=== PATIENT | female | born 1940 | race Caucasian/White ===

== ENCOUNTER 2017-08-20 16:27 | Emergency (ER) | payer OTHER ==
[~2017-08-20] VITALS: Ht 175.3 cm; Wt 71.3 kg
[2017-08-20 16:42] VITALS: BP 188/82; PULSE 92; RESP 18; TEMP 97.3; O2SAT 99
[2017-08-20] MEDS ORDERED: MECL-62 PO ×2 (17:14)
[2017-08-20] MEDS ORDERED: TYLETAB36 PO ×2 (17:14)
[2017-08-20] MEDS ORDERED: ZOLO100T PO ×2 (17:14)
[2017-08-20] MEDS ORDERED: PROP40TA3 PO ×2 (17:14)
[2017-08-20] MEDS ORDERED: GABA300C5 PO ×2 (17:14)
[2017-08-20] MEDS ORDERED: PROM12.54 PO ×2 (17:14)
[2017-08-20] MEDS ORDERED: AMIT50TA3 PO ×2 (17:14)
[2017-08-20] MEDS ORDERED: SODIUM CHLORID 0.9% 500 ML INJ 500 ML IV ONE (17:30)
[2017-08-20] MEDS ORDERED: MORPHINE SULFATE 8 MG/ML INJ IV PUSH ONE (17:30)
[2017-08-20] MEDS ORDERED: ONDANSETRON HCL 4 MG/2 ML VIAL IV PUSH ONE (17:30)
--- NOTE | 2017-08-20 17:42 | PD ---
HPI Chief Complaint: Pain: Acute or Chronic Time Seen by Provider: 17:14 Travel History International Travel<30 days: No Contact w/Intl Traveler<30days: No Traveled to known affect area: No History of Present Illness HPI the patient is a 76-year-old female who presents to the emergency department for multiple complaints. The patient states she recently moved from [place] to the local area one month ago and does not have a local primary physician. The patient states her last week and a half she has had some hyperparesthesias to the right lower extremity, especially over the thigh and abdomen. She now complains of hyperparesthesias over the anterior aspect the left thigh, notes diminished sensation to lower extremity bilateral, however, does have a history of neuropathy for which she takes Neurontin and amitriptyline. The patient now notes she has had intermittent abdominal pain over the course of the day which is initially located lower aspect of her abdomen, now radiates to the upper aspect of her abdomen. She denies any nausea , vomiting, constipation, or change in bowel habits. 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 The patient states she had a referral to see a neurologist in [place], however, moved from [place] after the of her , prior to seeing the neurologist. Symptoms are moderate, there are no alleviating or exacerbating factors. PFSH Past Medical History Depression: Yes Diminished Hearing: No Tetanus Vaccination: Unknown ?: Not Past Surgical History Appendectomy: Yes Eye Surgery: Yes (BILAT. CATARACT REMOVAL) Hysterectomy: Yes Social History Alcohol Use: No Tobacco Use: No Substance Use: No Allergies-Medications (Allergen,Severity, Reaction): Coded Allergies: No Known Allergies (Verified Allergy, Unknown, 08/20/17) Reported Meds & Prescriptions Reported Meds & Active Scripts Active Reported Amitriptyline (Amitriptyline HCl) 50 Mg Tab 50 Mg PO HS Propranolol (Propranolol HCl) 40 Mg Tab 40 Mg PO Q12HR Promethazine (Promethazine HCl) 12.5 Mg Tab 12.5 Mg PO QDAY PRN Gabapentin 300 Mg Cap 300 Mg PO TID Meclizine (Meclizine HCl) 25 Mg Tab 25 Mg PO DIRECTED PRN Tylenol-Codeine #4 (Acetaminophen-Codeine) 300-60 mg Tab 1 Tab PO Q6H PRN Zoloft (Sertraline HCl) 100 Mg Tab 100 Mg PO DAILY Review of Systems Except as stated in HPI: all other systems reviewed are Neg General / Constitutional: No: Fever HENT: No: Headaches, Lightheadedness Cardiovascular: No: Chest Pain or Discomfort Respiratory: No: Shortness of Breath Gastrointestinal: No: Nausea, Vomiting, Diarrhea Genitourinary: No: Dysuria Musculoskeletal: Positive: Weakness (occasionally her legs want to give out) Neurologic: Positive: Weakness (occasionally her legs want to give out), Paresthesia (hyperparesthesias), Sensory Disturbance, No: Change in Mentation Physical Exam Narrative GENERAL: Awake, alert, pleasant 76-year-old female who appears her stated age and is in no acute respiratory distress. SKIN: Focused skin assessment warm/dry. HEAD: Atraumatic. Normocephalic. EYES: Pupils equal and round. No scleral icterus. No injection or drainage. ENT: No nasal bleeding or discharge. Mucous membranes pink and moist. NECK: Trachea midline. No JVD. CARDIOVASCULAR: Regular rate and rhythm. No murmur appreciated. RESPIRATORY: No accessory muscle use. Clear to auscultation. Breath sounds equal bilaterally. GASTROINTESTINAL: Abdomen soft, non-tender, nondistended. No rebound tenderness , guarding, or rigidity. Abdomen is soft on exam. MUSCULOSKELETAL: No obvious deformities. No clubbing. No cyanosis. No edema. Patient is able flex the hips and knees bilaterally. Positive dorsalis pedal pulses. NEUROLOGICAL: Awake and alert. No obvious cranial nerve deficits. Motor grossly within normal limits. Normal speech. Hypersensitive to soft touch over the anterior aspect of the right thigh, minimal hypersensitive teeth to soft touch of the intra-aspect the left thigh. Minimal hyperesthesias of the lower abdomen bilaterally. PSYCHIATRIC: Appropriate mood and affect; insight and judgment normal. Data Data Last Documented VS Vital Signs Date Time Temp Pulse Resp B/P (MAP) Pulse Ox O2 Delivery O2 Flow Rate FiO2 08/20/17 18:44 84 16 187/81 (116) 94 Room Air 08/20/17 16:42 97.3 Orders Orders Complete Blood Count With Diff (08/20/17 17:30) Comprehensive Metabolic Panel (08/20/17 17:30) C-Reactive Protein (Crp) (08/20/17 17:30) Westergren Sedimentation Rate (08/20/17 17:30) Lipase (08/20/17 17:30) Morphine Inj (Morphine Inj) (08/20/17 17:30) Ondansetron Inj (Zofran Inj) (08/20/17 17:30) Sodium Chlorid 0.9% 500 Ml Inj (Ns 500 M (08/20/17 17:30) Hydromorphone Pf Inj (Dilaudid Pf Inj) (08/20/17 19:00) Ketorolac Inj (Toradol Inj) (08/20/17 19:00) Labs Laboratory Tests Test 08/20/17 17:40 White Blood Count 9.4 TH/MM3 Red Blood Count 4.41 MIL/MM3 Hemoglobin 14.1 GM/DL Hematocrit 42.3 % Mean Corpuscular Volume 95.9 FL Mean Corpuscular Hemoglobin 32.0 PG Mean Corpuscular Hemoglobin Concent 33.4 % Red Cell Distribution Width 12.5 % Platelet Count 278 TH/MM3 Mean Platelet Volume 8.1 FL Neutrophils (%) (Auto) 83.2 % Lymphocytes (%) (Auto) 7.5 % Monocytes (%) (Auto) 6.3 % Eosinophils (%) (Auto) 2.7 % Basophils (%) (Auto) 0.3 % Neutrophils # (Auto) 7.8 TH/MM3 Lymphocytes # (Auto) 0.7 TH/MM3 Monocytes # (Auto) 0.6 TH/MM3 Eosinophils # (Auto) 0.3 TH/MM3 Basophils # (Auto) 0.0 TH/MM3 CBC Comment DIFF FINAL Differential Comment Erythrocyte Sedimentation Rate 10 mm/hr Blood Urea Nitrogen 12 MG/DL Creatinine 0.68 MG/DL Random Glucose 138 MG/DL Total Protein 7.0 GM/DL Albumin 3.5 GM/DL Calcium Level 9.5 MG/DL Alkaline Phosphatase 77 U/L Aspartate Amino Transf (AST/SGOT) 18 U/L Alanine Aminotransferase (ALT/SGPT) 16 U/L Total Bilirubin 0.7 MG/DL Sodium Level 136 MEQ/L Potassium Level 3.7 MEQ/L Chloride Level 101 MEQ/L Carbon Dioxide Level 27.2 MEQ/L Anion Gap 8 MEQ/L Estimat Glomerular Filtration Rate 84 ML/MIN Lipase 52 U/L MDM Medical Decision Making Medical Screen Exam Complete: Yes Emergency Medical Condition: Yes Medical Record Reviewed: Yes Interpretation(s) Laboratory Tests Test 08/20/17 17:40 White Blood Count 9.4 TH/MM3 Red Blood Count 4.41 MIL/MM3 Hemoglobin 14.1 GM/DL Hematocrit 42.3 % Mean Corpuscular Volume 95.9 FL Mean Corpuscular Hemoglobin 32.0 PG Mean Corpuscular Hemoglobin Concent 33.4 % Red Cell Distribution Width 12.5 % Platelet Count 278 TH/MM3 Mean Platelet Volume 8.1 FL Neutrophils (%) (Auto) 83.2 % Lymphocytes (%) (Auto) 7.5 % Monocytes (%) (Auto) 6.3 % Eosinophils (%) (Auto) 2.7 % Basophils (%) (Auto) 0.3 % Neutrophils # (Auto) 7.8 TH/MM3 Lymphocytes # (Auto) 0.7 TH/MM3 Monocytes # (Auto) 0.6 TH/MM3 Eosinophils # (Auto) 0.3 TH/MM3 Basophils # (Auto) 0.0 TH/MM3 CBC Comment DIFF FINAL Differential Comment Erythrocyte Sedimentation Rate 10 mm/hr Blood Urea Nitrogen 12 MG/DL Creatinine 0.68 MG/DL Random Glucose 138 MG/DL Total Protein 7.0 GM/DL Albumin 3.5 GM/DL Calcium Level 9.5 MG/DL Alkaline Phosphatase 77 U/L Aspartate Amino Transf (AST/SGOT) 18 U/L Alanine Aminotransferase (ALT/SGPT) 16 U/L Total Bilirubin 0.7 MG/DL Sodium Level 136 MEQ/L Potassium Level 3.7 MEQ/L Chloride Level 101 MEQ/L Carbon Dioxide Level 27.2 MEQ/L Anion Gap 8 MEQ/L Estimat Glomerular Filtration Rate 84 ML/MIN Lipase 52 U/L Differential Diagnosis Differential diagnosis includes neuropathy, spinal cord disorder, peripheral neuropathy, medication side effect, electrolyte abnormality. Narrative Course IV was established, labs are drawn and sent, and the patient was placed on cardiac telemetry monitoring and continuous pulse oximetry monitoring. The patient was administer morphine, Zofran, and IV fluids. The patient's white count is unremarkable. Calcium and potassium are normal. Sedimentation rate is normal at 10. I discussed the patient with the on-call neurologist, Dr. Corona, who states the patient is stable for outpatient follow-up. I will provide the patient information regards to following up with neurology. I will write Fords for breakthrough pain. Diagnosis Primary Impression: Hyperesthesia Referrals: Jozef Corona MD call for appointment Patient Instructions: General Instructions Additional Instructions: Follow-up with neurology. Medications as directed. Return if symptoms worsen or progress. Please provide the patient a copy of her lab results at discharge. Do not take Fords and Tylenol No. 4 together at the same time. Med/Other Pt SpecificInfo: Prescription(s) given Scripts Hydrocodone-Acetaminophen (Fords) 5-325 mg Tab 1 TAB PO Q6H Y for PAIN, #15 TAB 0 Refills Prov: Brandon Hu MD 08/20/17 Disposition: 01 DISCHARGE HOME Condition: Stable Brandon Hu MD Aug 20, 2017 17:42
[2017-08-20 17:48] VITALS: BP 180/74; PULSE 89; RESP 16; O2SAT 97
[2017-08-20 17:59] LABS: AUTOMATED NEUTROPHIL # 7.8 TH/MM3 (1.8-7.7); BASOPHIL % 0.3 % (0.0-2.0); EOSINOPHIL # 0.3 TH/MM3 (0-0.4); EOSINOPHIL % 2.7 % (0.0-4.0); HEMATOCRIT 42.3 % (35.0-46.0); HEMO FLAGS DIFF FINAL; LYMPH % 7.5 % (9.0-44.0); LYMPHOCYTE # 0.7 TH/MM3 (1.0-4.8); MEAN CELL VOLUME 95.9 FL (80.0-100.0); MEAN CORPUSCULAR HGB CONC 33.4 % (32.0-36.0); MONO % 6.3 % (0.0-8.0); NEUT % 83.2 % (16.0-70.0); PLATELET COUNT 278 TH/MM3 (150-450); RED BLOOD COUNT 4.41 MIL/MM3 (4.00-5.30); RED CELL DISTRIBUTION WIDTH 12.5 % (11.6-17.2); WHITE BLOOD COUNT 9.4 TH/MM3 (4.0-11.0)
[2017-08-20 18:28] LABS: CHLORIDE 101 MEQ/L (98-107); POTASSIUM 3.7 MEQ/L (3.5-5.1); SODIUM (NA) 136 MEQ/L (136-145)
[2017-08-20 18:32] LABS: ANION GAP 8 MEQ/L (5-15); BICARBONATE 27.2 MEQ/L (21.0-32.0); BLOOD UREA NITROGEN 12 MG/DL (7-18)
[2017-08-20 18:35] LABS: ALT (GPT) 16 U/L (10-53); AST (GOT) 18 U/L (15-37); GLOMERULAR FILTRATION RATE 84 ML/MIN (>89)
[2017-08-20 18:36] LABS: TOTAL BILIRUBIN ADULT 0.7 MG/DL (0.2-1.0)
[2017-08-20 18:38] LABS: ALKALINE PHOSPHATASE 77 U/L (45-117)
[2017-08-20 18:44] VITALS: BP 187/81; PULSE 84; RESP 16; O2SAT 94
[2017-08-20] MEDS ORDERED: KETOROLAC TROMETHAMINE 30 MG/ML (IVP) VIAL IV PUSH ONE (19:00)
[2017-08-20] MEDS ORDERED: HYDROmorphone HCL PF 0.5 MG/0.5 ML SYRINGE IV PUSH ONE (19:00)
[2017-08-20] MEDS ORDERED: NORC5TAB PO (19:04)
[2017-08-20 19:47] VITALS: BP 180/80; PULSE 86; RESP 16; O2SAT 96
== END 2017-08-20 20:04 | disposition home or self-care (01) ==
LOC: PHED 16:27 → EDBD 16:27 → PHED 20:04
DX: R20.3 Hyperesthesia (principal); R10.9 Unspecified abdominal pain; Z86.69 Personal history of other diseases of the nervous system and sense organs; Z86.59 Personal history of other mental and behavioral disorders
CPT/HCPCS: 80053; 83690; 85025; 85652; 86140; 96361; 96374; 96375; 99284; J1170; J1885; J2270; J2405; J7040

== ENCOUNTER 2017-08-22 16:42 | Inpatient (IN) | payer OTHER, MEDICARE ==
[~2017-08-22] VITALS: Ht 175.3 cm; Wt 71.1 kg
[~2017-08-22 16:42] MED LIST: AMIT50TA3 PO; GABA300C5 PO; MECL-62 PO; NORC5TAB PO; PROM12.54 PO; PROP40TA3 PO; TYLETAB36 PO; ZOLO100T PO
[2017-08-22 16:49] VITALS: BP 131/71; PULSE 97; RESP 16; TEMP 97.2; O2SAT 94
--- NOTE | 2017-08-22 17:27 | PD ---
HPI Chief Complaint: GI Complaint Time Seen by Provider: 17:13 Travel History International Travel<30 days: No Contact w/Intl Traveler<30days: No Traveled to known affect area: No History of Present Illness HPI 76-year-old female complains of abdominal pain with nausea vomiting. Patient states that the symptoms started 3 days ago and got progressively worse since then. Patient he was seen in emergency room 2 days ago and had blood test done which was normal. Patient states that the abdominal pain was localized to lower abdomen at that time and moving up to the upper abdomen now. Patient states the pain in cramping pain and sharp pain without radiation. Patient states that she has been vomiting up bile material. Patient denies any fever chills. Patient denies any headache. Patient denies any chest pain or shortness of breath. Patient denies any dysuria or frequency. Patient denies any fever chills. Patient status post hysterectomy and appendectomy in the past. Patient also has history of neuropathy. PFSH Past Medical History Depression: Yes Diminished Hearing: No Medical other: No (Neuropathy of leg, due to spinal issues) Tetanus Vaccination: < 5 Years Influenza Vaccination: Yes Past Surgical History Appendectomy: Yes Eye Surgery: Yes (BILAT. CATARACT REMOVAL) Hysterectomy: Yes Social History Alcohol Use: No Tobacco Use: No Substance Use: No Allergies-Medications (Allergen,Severity, Reaction): Coded Allergies: No Known Allergies (Verified Allergy, Unknown, 08/20/17) Reported Meds & Prescriptions Reported Meds & Active Scripts Active Meridian (Hydrocodone-Acetaminophen) 5-325 mg Tab 1 Tab PO Q6H PRN Reported Amitriptyline (Amitriptyline HCl) 50 Mg Tab 50 Mg PO HS Propranolol (Propranolol HCl) 40 Mg Tab 40 Mg PO Q12HR Promethazine (Promethazine HCl) 12.5 Mg Tab 12.5 Mg PO QDAY PRN Gabapentin 300 Mg Cap 300 Mg PO TID Meclizine (Meclizine HCl) 25 Mg Tab 25 Mg PO DIRECTED PRN Tylenol-Codeine #4 (Acetaminophen-Codeine) 300-60 mg Tab 1 Tab PO Q6H PRN Zoloft (Sertraline HCl) 100 Mg Tab 100 Mg PO DAILY Review of Systems General / Constitutional: No: Fever Eyes: No: Visual changes HENT: No: Headaches Cardiovascular: No: Chest Pain or Discomfort Respiratory: No: Shortness of Breath Gastrointestinal: Positive: Nausea, Vomiting, Abdominal Pain Genitourinary: No: Dysuria Musculoskeletal: No: Pain Skin: No Rash Neurologic: No: Weakness Psychiatric: No: Depression Endocrine: No: Polydipsia Hematologic/Lymphatic: No: Easy Bruising Physical Exam Narrative GENERAL: Well-nourished, well-developed patient. SKIN: Focused skin assessment warm/dry. HEAD: Normocephalic. EYES: No scleral icterus. No injection or drainage. NECK: Supple, trachea midline. No JVD or lymphadenopathy. CARDIOVASCULAR: Regular rate and rhythm without murmurs, gallops, or rubs. RESPIRATORY: Breath sounds equal bilaterally. No accessory muscle use. GASTROINTESTINAL: Abdomen soft, nondistended. Patient has moderate tenderness on palpation epigastric and right upper quadrant of the abdomen. No rebound tenderness. No mass. MUSCULOSKELETAL: No cyanosis, or edema. BACK: Nontender without obvious deformity. No CVA tenderness. Neurologic exam normal. Data Data Last Documented VS Vital Signs Date Time Temp Pulse Resp B/P (MAP) Pulse Ox O2 Delivery O2 Flow Rate FiO2 08/22/17 18:11 98.6 89 17 175/80 (111) 97 Room Air Orders Orders Complete Blood Count With Diff (08/22/17 17:19) Comprehensive Metabolic Panel (08/22/17 17:19) Lipase (08/22/17 17:19) Prothrombin Time / Inr (Pt) (08/22/17 17:19) Act Partial Throm Time (Ptt) (08/22/17 17:19) Urinalysis - C+S If Indicated (08/22/17 17:19) Ct Abd/Pel W Iv Contrast(Rout) (08/22/17 17:19) Iv Access Insert/Monitor (08/22/17 17:19) Ecg Monitoring (08/22/17 17:19) Oximetry (08/22/17 17:19) Ondansetron Inj (Zofran Inj) (08/22/17 17:30) Sodium Chlor 0.9% 1000 Ml Inj (Ns 1000 M (08/22/17 17:19) Sodium Chloride 0.9% Flush (Ns Flush) (08/22/17 17:30) Electrocardiogram (08/22/17 17:19) Famotidine Inj (Pepcid Inj) (08/22/17 17:30) Morphine Inj (Morphine Inj) (08/22/17 17:45) Iohexol 350 Inj (Omnipaque 350 Inj) (08/22/17 17:49) Diphenhydramine Inj (Benadryl Inj) (08/22/17 18:15) Metoclopramide Inj (Reglan Inj) (08/22/17 18:15) Labs Laboratory Tests Test 08/22/17 17:32 White Blood Count 8.5 TH/MM3 Red Blood Count 4.57 MIL/MM3 Hemoglobin 14.9 GM/DL Hematocrit 43.7 % Mean Corpuscular Volume 95.5 FL Mean Corpuscular Hemoglobin 32.6 PG Mean Corpuscular Hemoglobin Concent 34.1 % Red Cell Distribution Width 12.9 % Platelet Count 320 TH/MM3 Mean Platelet Volume 8.0 FL Neutrophils (%) (Auto) 74.3 % Lymphocytes (%) (Auto) 9.1 % Monocytes (%) (Auto) 15.1 % Eosinophils (%) (Auto) 1.1 % Basophils (%) (Auto) 0.4 % Neutrophils # (Auto) 6.3 TH/MM3 Lymphocytes # (Auto) 0.8 TH/MM3 Monocytes # (Auto) 1.3 TH/MM3 Eosinophils # (Auto) 0.1 TH/MM3 Basophils # (Auto) 0.0 TH/MM3 CBC Comment DIFF FINAL Differential Comment Prothrombin Time 11.2 SEC Prothromb Time International Ratio 1.0 RATIO Activated Partial Thromboplast Time 24.1 SEC Random Glucose 145 MG/DL Albumin 3.3 GM/DL Calcium Level 9.4 MG/DL Sodium Level 135 MEQ/L Potassium Level 3.9 MEQ/L Chloride Level 98 MEQ/L Carbon Dioxide Level 30.7 MEQ/L Anion Gap 6 MEQ/L Lipase 49 U/L [facility] Medical Decision Making Medical Screen Exam Complete: Yes Emergency Medical Condition: Yes Interpretation(s) 1815 p.m. CBC within normal limit. 1852 PM. Last Impressions Abdomen/Pelvis CT 08/22/179 Signed Impressions: Service Date/Time: Tuesday, August 22, 2017 17:45 - CONCLUSION: 1. There is a distal small bowel obstruction secondary to a low Spigellian hernia on the right. 2. Small volume ascites. 3. Cholelithiasis. 4. Moderate-sized hiatal hernia. 5. 6. 5 mm right lower lobe pulmonary nodule. The findings described above include a newly detected solid pulmonary nodule of 4-6 mm average diameter. Guidelines from the Fleischner Society for the follow-up and management of newly detected indeterminate pulmonary nodules in persons >34 years old depend on nodule size (average of length and width) and underlying risk factors (including smoking and other risk factors). Please consider the following recommendations after clinical assessment of risk factors. For 4-6 mm nodules: 7. In low risk patients, follow-up CT at 12 months; if unchanged, no further follow-up needed. In high risk patients, initial follow-up CT at 6-12 months, then 18-24 months if no change. Bridger Coronado Jr., MD 1901 p.m. CBC within normal limit. Sodium 135. BUN 33. Creatinine 0.76. Differential Diagnosis Differential diagnosis including gastritis, PUD, pancreatitis, cholecystitis, colitis, UTI, pyelonephritis, nephrolithiasis, bowel obstruction. Narrative Course 76-year-old female with epigastric right upper quadrant abdominal pain, nausea vomiting. Normal saline solution 1 25 cc an hour. Morphine 2 mg IV. Zofran 4 mg IV. Pepcid 20 mg IV. Reglan 10 mg IV. Benadryl 25 g IV. Ativan 1 mg IV. NG tube inserted and connected to low wall suction. Normal saline solution 1 L IV bolus. Spoke with general surgeon on-call Dr. Brendan Torre. Dr. Brendan Torre advised medical admission and surgical consultation. Diagnosis Primary Impression: Incarcerated hernia of abdominal cavity Additional Impressions: Small bowel obstruction Dehydration Admitting Information Admitting Physician Requests: Admit Alpesh Paulino MD Aug 22, 2017 17:27
[2017-08-22] MEDS ORDERED: SODIUM CHLORIDE 0.9% FLUSH 10 ML FLUSH IV FLUSH PRN ×2 (17:30→20:00)
[2017-08-22] MEDS ORDERED: FAMOTIDINE 20 MG/2 ML VIAL IV PUSH ONE (17:30)
[2017-08-22] MEDS ORDERED: ONDANSETRON HCL 4 MG/2 ML VIAL IVP ONE (17:30)
[2017-08-22] MEDS ORDERED: MORPHINE SULFATE 4 MG/ML INJ IV PUSH ONE (17:30)
[2017-08-22 17:42] LABS: AUTOMATED NEUTROPHIL # 6.3 TH/MM3 (1.8-7.7); BASOPHIL % 0.4 % (0.0-2.0); EOSINOPHIL # 0.1 TH/MM3 (0-0.4); EOSINOPHIL % 1.1 % (0.0-4.0); HEMATOCRIT 43.7 % (35.0-46.0); HEMO FLAGS DIFF FINAL; LYMPH % 9.1 % (9.0-44.0); LYMPHOCYTE # 0.8 TH/MM3 (1.0-4.8); MEAN CELL VOLUME 95.5 FL (80.0-100.0); MEAN CORPUSCULAR HEMOGLOBIN 32.6 PG (27.0-34.0); MEAN CORPUSCULAR HGB CONC 34.1 % (32.0-36.0); MONO % 15.1 % (0.0-8.0); NEUT % 74.3 % (16.0-70.0); PLATELET COUNT 320 TH/MM3 (150-450); RED BLOOD COUNT 4.57 MIL/MM3 (4.00-5.30); RED CELL DISTRIBUTION WIDTH 12.9 % (11.6-17.2); WHITE BLOOD COUNT 8.5 TH/MM3 (4.0-11.0)
[2017-08-22] MEDS ORDERED: MORPHINE SULFATE 2 MG/ML INJ IV PUSH ONE (17:45)
[2017-08-22] MEDS ORDERED: IOHEXOL 350 MG/ML 10 ML VIAL (for RAD DIAG) IVCONTRAST ONE (17:49)
[2017-08-22] MEDS: SODIUM CHLOR 0.9% 1000 ML INJ 1,000 ML IV SCH ×2 (18:02→21:31)
[2017-08-22 18:10] LABS: CHLORIDE 98 MEQ/L (98-107); POTASSIUM 3.9 MEQ/L (3.5-5.1); SODIUM (NA) 135 MEQ/L (136-145)
[2017-08-22 18:11] VITALS: BP 175/80; PULSE 89; RESP 17; TEMP 98.6; O2SAT 97
[2017-08-22 18:14] LABS: ANION GAP 6 MEQ/L (5-15); BICARBONATE 30.7 MEQ/L (21.0-32.0)
[2017-08-22 18:15] LABS: APTT (PATIENT) 24.1 SEC (24.3-30.1); PROTHROMBIN TIME - PATIENT 11.2 SEC (9.8-11.6)
[2017-08-22] MEDS ORDERED: diphenhydrAMINE HCL 50 MG/ML VIAL IV PUSH ONE (18:15)
[2017-08-22] MEDS ORDERED: METOCLOPRAMIDE HCL 10 MG/2 ML VIAL IV PUSH ONE (18:15)
--- NOTE | 2017-08-22 18:20 | RADRPT ---
EXAM DATE/TIME: 08/22/2017 17:45 [facility] COMPARISON: No previous studies available for comparison. INDICATIONS : Upper abdominal pain with nausea and vomiting. IV CONTRAST: 100 cc Omnipaque 350 (iohexol) IV ORAL CONTRAST: No oral contrast ingested. RADIATION DOSE: 11.03 CTDIvol (mGy) MEDICAL HISTORY : None SURGICAL HISTORY : Hysterectomy. Appendectomy.Hip replacement. ENCOUNTER: Initial ACUITY: 3 days PAIN SCALE: 5/10 LOCATION: upper quadrant abdomen TECHNIQUE: Volumetric scanning of the abdomen and pelvis was performed. Using automated exposure control and ad justment of the mA and/or kV according to patient size, radiation dose was kept as low as reasonably achievable to obtain optimal diagnostic quality images. DICOM format image data is available electro nically for review and comparison. FINDINGS: LOWER LUNGS: A moderate-sized hiatal hernia which is fluid-filled. Lung bases show linear atelectasis versus scarr ing within the lingula. Mild bronchiectasis within the right middle lobe. 5 mm pulmonary nodule withi n the right lung base. LIVER: Homogeneous density without lesion. There is no dilation of the biliary tree. Small gallstones obser jagdeep within an otherwise normal-appearing gallbladder. SPLEEN: Normal size without lesion. PANCREAS: Within normal limits. KIDNEYS: Normal in size and shape. There is no mass, stone or hydronephrosis. ADRENAL GLANDS: Within normal limits. VASCULAR: There is no aortic aneurysm. BOWEL/MESENTERY: There is a low Spigellian hernia on the right containing a loop of small bowel. There is also fluid w ithin the hernia. Dilated small bowel proximal to the hernia with decompressed small bowel distal to the hernia. There is mild stranding of the mesenteric fat within the right lower quadrant. I'm not ab le to clearly identify the appendix. The colon is normal in caliber. No free air. Stomach is distende d with fluid. ABDOMINAL WALL: Within normal limits. RETROPERITONEUM: There is no lymphadenopathy. BLADDER: No wall thickening or mass. REPRODUCTIVE: Within normal limits. INGUINAL: There is no lymphadenopathy or hernia. MUSCULOSKELETAL: Within normal limits for patient age. CONCLUSION: 1. There is a distal small bowel obstruction secondary to a low Spigellian hernia on the right. 2. Small volume ascites. 3. Cholelithiasis. 4. Moderate-sized hiatal hernia. 5. 6. 5 mm right lower lobe pulmonary nodule. The findings described above include a newly detected maksim d pulmonary nodule of 4-6 mm average diameter. Guidelines from the Fleischner Society for the follow- up and management of newly detected indeterminate pulmonary nodules in persons >34 years old depend o n nodule size (average of length and width) and underlying risk factors (including smoking and other risk factors). Please consider the following recommendations after clinical assessment of risk facto rs. For 4-6 mm nodules: 7. In low risk patients, follow-up CT at 12 months; if unchanged, no further follow-up needed. In hi gh risk patients, initial follow-up CT at 6-12 months, then 18-24 months if no change. Bridger Coronado Jr., MD on August 22, 2017 at 18:11 Board Certified Radiologist. This report was verified electronically.
[2017-08-22 19:03] LABS: ALKALINE PHOSPHATASE 70 U/L (45-117); ALT (GPT) 28 U/L (10-53); AST (GOT) 25 U/L (15-37); BLOOD UREA NITROGEN 33 MG/DL (7-18); GLOMERULAR FILTRATION RATE 74 ML/MIN (>89)
[2017-08-22] MEDS ORDERED: SODIUM CHLOR 0.9% 1000 ML INJ 1,000 ML IV ONE (19:15)
[2017-08-22] MEDS ORDERED: LORazepam 2 MG/ML VIAL IV PUSH ONE (19:15)
[2017-08-22] MEDS ORDERED: BUPIVACAINE/EPINEPHRINE 0.25% PF 30 ML VIAL ONE ×2 (19:54)
[2017-08-22] MEDS ORDERED: LIDOCAINE 1%/EPINEPHrine 1:100,000 SOLN 20 ML VIAL ONE (19:54)
[2017-08-22] MEDS ORDERED: MORPHINE SULFATE 2 MG/ML INJ IV PUSH PRN (20:00)
[2017-08-22] MEDS ORDERED: NALOXONE HCL 0.4 MG/ML AMP IV PUSH PRN (20:00)
[2017-08-22 20:16] VITALS: BP 148/68; TEMP 98.1
[2017-08-22] MEDS ORDERED: ceFAZolin INJ 1,000 MG VIAL ONE (20:23)
[2017-08-22] MEDS: SODIUM CHLORIDE 0.9% FLUSH 10 ML FLUSH IV FLUSH SCH (21:00)
--- NOTE | 2017-08-22 21:12 | MB ---
cc: TOO PALAFOX M.D. DATE OF CONSULTATION 08/22/2017 REASON FOR CONSULTATION Small bowel obstruction secondary to right lower quadrant hernia. HISTORY OF PRESENT ILLNESS Ms. Peres is a pleasant 76-year-old female who apparently had a 3-day history of nausea, vomiting, abdominal pain. She is seen in the emergency department approximately 2 days ago at [place] and blood work and the physical exam was felt to be normal and she was discharged home. The patient returned tonight with progressive symptoms. She was seen and evaluated by Dr. Alpesh Paulino. Dr. Paulino ordered a CT scan of the abdomen and pelvis that showed an incarcerated right lower quadrant hernia. Surgical consultation was requested. The patient overall is a very poor historian, has some memory loss but I was able to get most of the history from her. She reports nausea, vomiting, abdominal pain for the last 3 days. She reports bowel movement yesterday. Pain is mainly in the right lower quadrant area. She denies any known history of hernia. She reports previous abdominal surgery is a . PAST MEDICAL HISTORY Early dementia, depression, breast cancer. PAST SURGICAL HISTORY She has had bilateral mastectomies with looks like implant reconstruction. She has had cataract surgery. She has had a . MEDICATIONS Her medication list is well-documented in the chart. Please see the EMR. ALLERGIES SHE HAS NO KNOWN DRUG ALLERGIES. SOCIAL HISTORY She does not smoke or drink. She lives here locally with her daughter. REVIEW OF SYSTEMS Please see HPI. PHYSICAL EXAMINATION VITAL SIGNS: Temperature is 98, pulse is 80, blood pressure 140/60, respiratory rate 20. GENERAL: In general, this is a pleasant elderly female who is lying in the bed. No apparent distress. HEENT: Pupils equal, round, reactive to light. Sclera are white. Oropharynx is clear and moist. NECK: Neck is supple. No masses. LUNGS: Clear to auscultation bilaterally. HEART: S1-S2, no murmur. ABDOMEN: Soft, mildly distended, nontender. She does have a palpable mass over in the right groin over by the iliac spine. I do palpate some bowel in there but it is soft, does not appear to be strangulated. Bowel sounds are active. EXTREMITIES: Free range of motion x4. NEUROLOGICALLY: Alert and oriented x3. IMAGING STUDIES CT scan of the abdomen and pelvis does demonstrate incarcerated small bowel and a right lower quadrant hernia. It is unclear if this is a groin hernia, a possible incisional hernia from her previous scar or possible spigelian hernia but there is definitely a small bowel within it. 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 The patient also had some gallstones and a hiatal hernia. IMPRESSION Incarcerated right lower quadrant hernia. PLAN The patient will be taken to the operating room immediately for reduction of the small bowel and inspection of the small bowel. If the small bowel is considered compromised she may require a bowel resection. This was discussed with her daughter by phone who was agreeable and is coming back to the hospital to be with her mother. Operating room staff was notified and they will bring the patient up immediately. MD ROSS Nichols/VALERIE /8:44 PM 8:55 PM
[2017-08-22] MEDS ORDERED: CHLORHEXIDINE GLUCONATE 2 % 1 PACK (2 CLOTHS) TOPICAL PRN (21:30)
[2017-08-22] MEDS ORDERED: POVIDONE IODINE 5% (ANTISEPSIS KIT) 4 APPLICATIONS EACH NARE PRN (21:30)
[2017-08-22] MEDS ORDERED: LACTATED RINGER'S 1000 ML IV PRN (21:30)
[2017-08-22] MEDS ORDERED: INSULIN HUMAN REGULAR 1,000 UNITS/10 ML VIAL SQ PRN (21:30)
[2017-08-22] MEDS ORDERED: SODIUM CHLORID 0.9% 500 ML IV PRN (21:30)
[2017-08-22] MEDS ORDERED: METOPROLOL TARTRATE 25 MG TAB PO PRN (21:30)
[2017-08-22 23:00] VITALS: BP 169/77; PULSE 83; RESP 23; TEMP 97.8; O2SAT 99
--- NOTE | 2017-08-23 00:13 | MP ---
cc: TOO PALAFOX M.D. DATE OF SURGERY: 08/22/2017 PREOPERATIVE DIAGNOSIS: Incarcerated right groin hernia. Incarcerated small bowel (viable right inguinal hernia). POSTOPERATIVE DIAGNOSIS Incarcerated right groin hernia. Incarcerated small bowel (viable right inguinal hernia). PROCEDURE PERFORMED Reduction, repair incarcerated right inguinal hernia. (Primary repair). SURGEON: Too Palafox MD. ANESTHESIA General endotracheal COMPLICATIONS None. INDICATIONS FOR PROCEDURE: Mr. Peres is a very pleasant 76 year-old female who presented to the emergency department with small bowel obstruction secondary to right lower quadrant hernia, seen on CT scan. She was advised to go to the operating room immediately. Risks and benefits of repair and reduction of the hernia was discussed with her and her daughter and they were agreeable. DETAILS The patient identified, brought to the operating room, placed supine on the operating room table. After adequate general anesthesia was achieved the abdomen and groin was prepped and draped in standard surgical fashion. 0.25% Marcaine was injected in the skin and subcutaneous tissue in the right groin. Transverse incision was made in the right groin. Dissection was carried down through the subcutaneous tissue down to the level of the external oblique. External oblique was opened along the course of its fibers. The patient was found to have a lateral bulge with a small sac which was opened. This was not the incarcerated hernia but rather a secondary hernia in the lateral compartment. Using direct finger palpation we were able to feel the true hernia which was more inferior and medial than expected. The abdominal wall fascia was then opened down to the level of the defect. A finger was placed in the defect and the bowel was held away as we opened it. Once we opened it, the bowel was released. The bowel was pink. There was a minor amount of bruising where it went through the neck of the hernia. The bowel was brought out and inspected over several minutes found to be of good color and actually peristalsing. The bruising was minimal. There was no ischemic changes. The bowel was then reduced back in the abdominal cavity. Attention was now directed to repair of the defect. The round ligament was ligated. The external oblique and transversalis fascia were then sewn together directly over the defect using a 2-0 Prolene suture with generous bites on both sides. As we closed we palpated the abdominal wall from the peritoneal side and the defect was completely obliterated with our primary suture repair. This was done all the way up until all layers of fascia had been brought back together under no tension. With this the defect was completely gone, the abdominal wall was intact. The wound was copiously irrigated with normal saline solution. The wound was injected with additional local anesthetic. Luis Alfredo fascia was then closed with a 3-0 Vicryl and skin was closed with 4-0 Vicryl. The patient tolerated the procedure well was awakened, and brought to recovery in stable condition. MD ROSS Nichols/LAKSMHI /9:46 PM /12:06 AM
[2017-08-23 04:00] VITALS: PULSE 91; RESP 20; O2SAT 97
--- NOTE | 2017-08-23 05:19 | EKG ---
Date Performed: 08/22/2017 Time Performed: 17:32:54 PTAGE: 76 years EKG: Sinus rhythm INCOMPLETE RIGHT BUNDLE BRANCH BLOCK BORDERLINE ECG NO PREVIOUS TRACING DOCTOR: Baldemar Campa Interpretating Date/Time 08/23/2017 05:17:52
[2017-08-23 06:41] LABS: CHLORIDE 103 MEQ/L (98-107); POTASSIUM 3.5 MEQ/L (3.5-5.1); SODIUM (NA) 140 MEQ/L (136-145)
[2017-08-23 06:48] LABS: AUTOMATED NEUTROPHIL # 5.5 TH/MM3 (1.8-7.7); BASOPHIL % 0.4 % (0.0-2.0); EOSINOPHIL # 0.4 TH/MM3 (0-0.4); EOSINOPHIL % 4.5 % (0.0-4.0); HEMATOCRIT 37.7 % (35.0-46.0); HEMO FLAGS DIFF FINAL; LYMPH % 15.2 % (9.0-44.0); LYMPHOCYTE # 1.3 TH/MM3 (1.0-4.8); MEAN CELL VOLUME 97.7 FL (80.0-100.0); MEAN CORPUSCULAR HEMOGLOBIN 33.8 PG (27.0-34.0); MEAN CORPUSCULAR HGB CONC 34.6 % (32.0-36.0); MONO % 13.6 % (0.0-8.0); NEUT % 66.3 % (16.0-70.0); RED BLOOD COUNT 3.86 MIL/MM3 (4.00-5.30); RED CELL DISTRIBUTION WIDTH 13.2 % (11.6-17.2); WHITE BLOOD COUNT 8.3 TH/MM3 (4.0-11.0)
[2017-08-23 06:57] LABS: PLATELET COUNT 222 TH/MM3 (150-450)
[2017-08-23 07:08] LABS: ALKALINE PHOSPHATASE 56 U/L (45-117); ALT (GPT) 21 U/L (10-53); ANION GAP 7 MEQ/L (5-15); AST (GOT) 16 U/L (15-37); BICARBONATE 30.1 MEQ/L (21.0-32.0); BLOOD UREA NITROGEN 30 MG/DL (7-18); GLOMERULAR FILTRATION RATE 82 ML/MIN (>89); TOTAL BILIRUBIN ADULT 0.8 MG/DL (0.2-1.0)
[2017-08-23 08:00] VITALS: BP 154/68; PULSE 89; RESP 18; TEMP 97.1; O2SAT 100
[2017-08-23] MEDS: ACETAMINOPHEN/HYDROcodone 325 MG/5 MG TAB PO PRN ×3 (08:45→18:06)
--- NOTE | 2017-08-23 09:14 | HHI.PR ---
Subjective Subjective Notes Resting in bed C/o neuropathy type pain in her bilateral lower extremities Pain at incision site is minimal Objective Vitals/I&O Vital Signs Date Time Temp Pulse Resp B/P (MAP) Pulse Ox O2 Delivery O2 Flow Rate FiO2 08/23/17 08:00 97.1 89 18 154/68 (96) 100 08/22/17 22:20 Nasal Cannula 3 Labs Laboratory Tests Test 08/22/17 17:32 08/23/17 04:55 White Blood Count 8.5 8.3 Red Blood Count 4.57 3.86 Hemoglobin 14.9 13.1 Hematocrit 43.7 37.7 Mean Corpuscular Volume 95.5 97.7 Mean Corpuscular Hemoglobin 32.6 33.8 Mean Corpuscular Hemoglobin Concent 34.1 34.6 Red Cell Distribution Width 12.9 13.2 Platelet Count 320 222 Mean Platelet Volume 8.0 8.8 Neutrophils (%) (Auto) 74.3 66.3 Lymphocytes (%) (Auto) 9.1 15.2 Monocytes (%) (Auto) 15.1 13.6 Eosinophils (%) (Auto) 1.1 4.5 Basophils (%) (Auto) 0.4 0.4 Neutrophils # (Auto) 6.3 5.5 Lymphocytes # (Auto) 0.8 1.3 Monocytes # (Auto) 1.3 1.1 Eosinophils # (Auto) 0.1 0.4 Basophils # (Auto) 0.0 0.0 CBC Comment DIFF FINAL DIFF FINAL Differential Comment Prothrombin Time 11.2 Prothromb Time International Ratio 1.0 Activated Partial Thromboplast Time 24.1 Blood Urea Nitrogen 33 30 Creatinine 0.76 0.69 Random Glucose 145 91 Total Protein 6.8 5.7 Albumin 3.3 2.7 Calcium Level 9.4 8.4 Alkaline Phosphatase 70 56 Aspartate Amino Transf (AST/SGOT) 25 16 Alanine Aminotransferase (ALT/SGPT) 28 21 Total Bilirubin 1.0 0.8 Sodium Level 135 140 Potassium Level 3.9 3.5 Chloride Level 98 103 Carbon Dioxide Level 30.7 30.1 Anion Gap 6 7 Estimat Glomerular Filtration Rate 74 82 Lipase 49 Cardiovascular: Regular Lungs: Clear Abdomen: Non-distended, Other (minimal pain around the incision site; clean dry and intact) Extremities: No edema A/P Assessment and Plan 76-year-old female POD1 primary repair of incarcerated hernia -Continue clear liquids until bowel function returns -Pain control -Ice -PT eval and treat -Expect patient to be in the hospital for at least 2 or 3 days Moraima Arias Aug 23, 2017 09:14
--- NOTE | 2017-08-23 09:22 | HHI.HP ---
[facility] Primary Care Physician No Primary Care Physician Admission Diagnosis abdominal hernia. Small bowel obstruction. Dehydration. Diagnoses: (1) Incarcerated hernia of abdominal cavity Diagnosis: Principal (2) Small bowel obstruction Diagnosis: Principal Chief Complaint: Abdominal pain, nausea vomiting Travel History International Travel<30 Days: No Contact w/Intl Traveler <30 Da: No Traveled to Known Affected Are: No History of Present Illness Written by Dudley Molina, acting as scribe for Dr. Daniel on 08/23/17 at 09: 11. 76-year-old female with known history of hypertension, tremors, neuropathy who presented to hospital because of abdominal pain, nausea vomiting. Patient states that her symptoms started on Sunday where she had severe abdominal pain and she did go to the emergency department for evaluation. She took a Tylenol #4 in the waiting room and by time she got into the back the pain had resolved. She had evaluation for her neuropathy and was sent home with pain medication. The patient went home and then Sunday she started developing abdominal pain again with increased nausea. She took Phenergan and her symptoms improved. She did not have any vomiting at that time. Yesterday the pain came back more severe with significant nausea and vomiting. She laid in bed majority of the day and every time she rolled over she would vomit. She describes the pain as a colicky type pain located in the epigastric region. Her last bowel movement was 2 days prior. She had no appetite, increased fatigue, weakness. She denied any fever, chills, hematemesis, she denies any history of constipation. Patient had workup done emergency department and found to have distal small bowel obstruction secondary to incarcerated hernia. Gen. surgery was called and patient went for surgery early this morning and had reduction and repair of incarcerated right inguinal hernia. At the time evaluating patient she states that her nausea has significantly resolved. There is mild tenderness in the abdomen. She is tolerating liquids at this time. She is not passing any gas or had a bowel movement since surgery. Review of Systems Constitutional: COMPLAINS OF: Change in appetite Gastrointestinal: COMPLAINS OF: Abdominal pain, Nausea, Vomiting Except as stated in HPI: all other systems reviewed are Neg Past Family Social History Past Medical History Hypertension Tremors Peripheral neuropathy Depression Past Surgical History Cataract surgery Appendectomy Hysterectomy Right hip replacement Reported Medications Reported Meds & Active Scripts Active Aurora (Hydrocodone-Acetaminophen) 5-325 mg Tab 1 Tab PO Q6H PRN Reported Amitriptyline (Amitriptyline HCl) 50 Mg Tab 50 Mg PO HS Propranolol (Propranolol HCl) 40 Mg Tab 40 Mg PO Q12HR Promethazine (Promethazine HCl) 12.5 Mg Tab 12.5 Mg PO QDAY PRN Gabapentin 300 Mg Cap 300 Mg PO TID Meclizine (Meclizine HCl) 25 Mg Tab 25 Mg PO DIRECTED PRN Tylenol-Codeine #4 (Acetaminophen-Codeine) 300-60 mg Tab 1 Tab PO Q6H PRN Zoloft (Sertraline HCl) 100 Mg Tab 100 Mg PO DAILY Allergies: Coded Allergies: No Known Allergies (Verified Allergy, Unknown, 08/20/17) Family History Reviewed and father from natural causes, mother in her 60s from alcoholism Social History Patient eyes any tobacco, alcohol or illicit drugs Physical Exam Vital Signs Vital Signs Date Time Temp Pulse Resp B/P (MAP) Pulse Ox O2 Delivery O2 Flow Rate FiO2 08/23/17 08:00 97.1 89 18 154/68 (96) 100 08/23/17 04:00 91 20 97 08/22/17 23:00 97.8 83 23 169/77 (107) 99 08/22/17 22:20 97.9 84 16 145/62 (89) 98 Nasal Cannula 3 08/22/17 22:07 97.9 86 16 128/57 (80) 98 Nasal Cannula 3 08/22/17 21:50 98.6 84 16 119/51 (73) 99 Simple Mask 7 08/22/17 20:21 98.1 85 16 148/68 (94) 99 08/22/17 20:16 98.1 86 20 148/68 (94) 99 Nasal Cannula 2.00 08/22/17 19:20 20 08/22/17 18:11 98.6 89 17 175/80 (111) 97 Room Air 08/22/17 16:49 97.2 97 16 131/71 (91) 94 Physical Exam GENERAL: Well-developed, well-nourished, in no acute distress. alert and orientated HEENT: Head is normocephalic without any lesions or masses noted. Facial features are symmetric. Eyes: Pupils equal round reactive to light. Extraocular muscles are intact. Conjunctivae were clear. Oropharyngeal: Pharynx without any erythema edema. Tongue is midline without deviation. Buccal mucosa is moist without any masses or lesions NECK: Supple without any masses. Trachea midline no deviation. No JVD, no bruits are appreciated CARDIAC: Regular rhythm, regular rate. S1/S2 are heard. No murmurs gallops or rubs. LUNGS: Clear to auscultation bilaterally. No wheeze, rhonchi or rales. No use of accessory muscles on inspiration or expiration. ABDOMEN: Soft, nontender. Nondistended. Bowel sounds heard in all 4 quadrants. No organomegaly or masses. Negative rebound, negative guarding EXTREMITIES: No edema, pulses are equal bilaterally. No cyanosis or clubbing NEUROLOGY: Mood and affect appear appropriate. Cranial nerves II through XII grossly intact. Muscle strength 5/5 in upper and lower extremities bilaterally. Deep tendon reflexes are 2+ in upper and lower extremities bilaterally. Laboratory Laboratory Tests Test 08/22/17 17:32 08/23/17 04:55 White Blood Count 8.5 8.3 Red Blood Count 4.57 3.86 Hemoglobin 14.9 13.1 Hematocrit 43.7 37.7 Mean Corpuscular Volume 95.5 97.7 Mean Corpuscular Hemoglobin 32.6 33.8 Mean Corpuscular Hemoglobin Concent 34.1 34.6 Red Cell Distribution Width 12.9 13.2 Platelet Count 320 222 Mean Platelet Volume 8.0 8.8 Neutrophils (%) (Auto) 74.3 66.3 Lymphocytes (%) (Auto) 9.1 15.2 Monocytes (%) (Auto) 15.1 13.6 Eosinophils (%) (Auto) 1.1 4.5 Basophils (%) (Auto) 0.4 0.4 Neutrophils # (Auto) 6.3 5.5 Lymphocytes # (Auto) 0.8 1.3 Monocytes # (Auto) 1.3 1.1 Eosinophils # (Auto) 0.1 0.4 Basophils # (Auto) 0.0 0.0 CBC Comment DIFF FINAL DIFF FINAL Differential Comment Prothrombin Time 11.2 Prothromb Time International Ratio 1.0 Activated Partial Thromboplast Time 24.1 Blood Urea Nitrogen 33 30 Creatinine 0.76 0.69 Random Glucose 145 91 Total Protein 6.8 5.7 Albumin 3.3 2.7 Calcium Level 9.4 8.4 Alkaline Phosphatase 70 56 Aspartate Amino Transf (AST/SGOT) 25 16 Alanine Aminotransferase (ALT/SGPT) 28 21 Total Bilirubin 1.0 0.8 Sodium Level 135 140 Potassium Level 3.9 3.5 Chloride Level 98 103 Carbon Dioxide Level 30.7 30.1 Anion Gap 6 7 Estimat Glomerular Filtration Rate 74 82 Lipase 49 Result Diagram: 08/23/175 08/23/17 0455 Imaging Last Impressions Abdomen/Pelvis CT 08/22/17 5219 Signed Impressions: Service Date/Time: Tuesday, August 22, 2017 17:45 - CONCLUSION: 1. There is a distal small bowel obstruction secondary to a low Spigellian hernia on the right. 2. Small volume ascites. 3. Cholelithiasis. 4. Moderate-sized hiatal hernia. 5. 6. 5 mm right lower lobe pulmonary nodule. The findings described above include a newly detected solid pulmonary nodule of 4-6 mm average diameter. Guidelines from the Fleischner Society for the follow-up and management of newly detected indeterminate pulmonary nodules in persons >34 years old depend on nodule size (average of length and width) and underlying risk factors (including smoking and other risk factors). Please consider the following recommendations after clinical assessment of risk factors. For 4-6 mm nodules: 7. In low risk patients, follow-up CT at 12 months; if unchanged, no further follow-up needed. In high risk patients, initial follow-up CT at 6-12 months, then 18-24 months if no change. Bridger Coronado Jr., MD Caprini VTE Risk Assessment Caprini VTE Risk Assessment: Mod/High Risk (score >= 2) Caprini Risk Assessment Model Point Value = 1 Point Value = 2 Point Value = 3 Point Value = 5 Age 41-60 Minor surgery BMI > 25 kg/m2 Swollen legs Varicose veins or History of unexplained or recurrent spontaneous Oral contraceptives or hormone replacement Sepsis (< 1 month) Serious lung disease, including pneumonia (< 1 month) Abnormal pulmonary function Acute myocardial infarction Congestive heart failure (< 1 month) History of inflammatory bowel disease Medical patient at bed rest Age 61-74 Arthroscopic surgery Major open surgery (> 45 min) Laparoscopic surgery (> 45 min) Malignancy Confined to bed (> 72 hours) Immobilizing plaster cast Central venous access Age >= 75 History of VTE Family history of VTE Factor V Leiden Prothrombin [id number] Lupus anticoagulant Anticardiolipin antibodies Elevated serum homocysteine Heparin-induced thrombocytopenia Other congenital or acquired thrombophilia Stroke (< 1 month) Elective arthroplasty Hip, pelvis, or leg fracture Acute spinal cord injury (< 1 month) Prophylaxis Regimen Total Risk Factor Score Risk Level Prophylaxis Regimen 0-1 Low Early ambulation 2 Moderate Order ONE of the following: *Sequential Compression Device (SCD) *Heparin 5000 units SQ BID 3-4 Higher Order ONE of the following medications: *Heparin 5000 units SQ TID *Enoxaparin/Lovenox 40 mg SQ daily (WT < 150 kg, CrCl > 30 mL/min) *Enoxaparin/Lovenox 30 mg SQ daily (WT < 150 kg, CrCl > 10-29 mL/min) *Enoxaparin/Lovenox 30 mg SQ BID (WT < 150 kg, CrCl > 30 mL/min) AND/OR *Sequential Compression Device (SCD) 5 or more Highest Order ONE of the following medications: *Heparin 5000 units SQ TID (Preferred with Epidurals) *Enoxaparin/Lovenox 40 mg SQ daily (WT < 150 kg, CrCl > 30 mL/min) *Enoxaparin/Lovenox 30 mg SQ daily (WT < 150 kg, CrCl > 10-29 mL/min) *Enoxaparin/Lovenox 30 mg SQ BID (WT < 150 kg, CrCl > 30 mL/min) AND *Sequential Compression Device (SCD) Assessment and Plan Assessment and Plan //Small bowel obstruction secondary to incarcerated hernia - Patient presented with three-day history of abdominal pain, nausea, vomiting - CT scan did indicate small bowel obstruction with incarcerated hernia - General surgery consulted and a she went for cervical intervention last night - Advance diet when passing gas per surgery - Continue to follow recommendations from general surgery //Azotemia - Secondary to nausea, vomiting, dehydration - Continue monitor renal function //Hyperglycemia - Check hemoglobin A1c - Start Accu-Cheks with sliding scale insulin if needed //Hypertension - Continue home medications //DVT prevention - Sequential compression devices Discussed Condition With Discharge planning after patient's bowels are moving and cleared by surgery Physician Certification 2 Midnight Certification Type: Admission for Inpatient Services Order for Inpatient Services The services are ordered in accordance with Medicare regulations or non- Medicare payer requirements, as applicable. In the case of services not specified as inpatient-only, they are appropriately provided as inpatient services in accordance with the 2-midnight benchmark. Estimated LOS (days): 3 days is the estimated time the patient will need to remain in the hospital, assuming treatment plan goals are met and no additional complications. Post-Hospital Plan: Not yet determined Notes: This note was transcribed by cruzito Molina. I, Dr. Delvis Daniel personally performed the history, physical exam, and medical decision making; and confirmed the accuracy of the information in the transcribed note. Authenticated by Dr. Delvis Daniel on 08/23/17 at 16:10. Dudley Molina Aug 23, 2017 09:22 Delvis Daniel MD Aug 23, 2017 16:10
[2017-08-23] MEDS: PROPRANOLOL HCL 40 MG TAB PO SCH ×2 (10:18→20:47)
[2017-08-23] MEDS: GABAPENTIN 300 MG CAP PO SCH ×3 (10:18→18:06)
--- NOTE | 2017-08-23 11:32 | HHI.FF ---
Face to Face Verification Diagnosis: (1) Physical deconditioning (2) Small bowel obstruction (3) Incarcerated hernia of abdominal cavity Physical Therapy Order: Evaluate and Treat, Improve ambulation, Strength and gait training Home Health Nursing Order: Medical education Signs/symptoms of disease process Nursing assessment with vital signs I have seen patient Rosette Peres on 08/23/17. My clinical findings support the need for the requested home health care services because: Deconditioned w/ increased weakness Limited ability to care for self I certify that my clinical findings support that this patient is homebound because: Unsteady gait/balance Unsafe to leave home unassisted Dudley Moilna Aug 23, 2017 11:31
[2017-08-23] MEDS ORDERED: WALKER WHEELS/F1 MIS (11:34)
[2017-08-23 12:00] VITALS: BP 135/63; PULSE 74; RESP 18; TEMP 97.1; O2SAT 96
[2017-08-23] MEDS ORDERED: ADJUSTABLE COMM1 MIS (13:11)
[2017-08-23 16:00] VITALS: BP 133/67; PULSE 85; RESP 18; TEMP 99.1; O2SAT 97
[2017-08-23] MEDS: SODIUM CHLORIDE 0.9% FLUSH 10 ML FLUSH IV FLUSH SCH ×2 (18:10→20:51)
[2017-08-23 20:00] VITALS: BP 141/65; PULSE 80; RESP 20; TEMP 97.1; O2SAT 97
[2017-08-23 20:49] LABS: HEMOGLOBIN A1a 1.7 %; HEMOGLOBIN A1b 1.7 %; HEMOGLOBIN Ao 85.2 %; HEMOGLOBIN LA1C 1.6 %; HEMOGLOBIN P3 3.4 %
[2017-08-23] MEDS ORDERED: AMITRIPTYLINE HCL 50 MG TAB PO SCH (21:00)
[2017-08-24 08:00] VITALS: BP 162/91; PULSE 79; RESP 17; TEMP 97.6; O2SAT 95
--- NOTE | 2017-08-24 08:04 | HHI.PR ---
cc: Brendan Torre MD Subjective Subjective Notes DAILY PROGRESS NOTE FOR SURGICAL ATTENDING, DR. ROSEMARY CRAVEN Resting in bed Family at bedside + flatus Objective Vitals/I&O Vital Signs Date Time Temp Pulse Resp B/P (MAP) Pulse Ox O2 Delivery O2 Flow Rate FiO2 08/23/17 20:00 97.1 80 20 141/65 (90) 97 08/22/17 22:20 Nasal Cannula 3 Labs Laboratory Tests Test 08/24/17 07:15 Cardiovascular: Regular Lungs: Clear Abdomen: Other (RIGHT lower quadrant incision with mild brusing; Steri strips in place ) Extremities: No edema A/P Problem List: (1) Status post inguinal hernia repair ICD Codes: Z98.890 - Other specified postprocedural states; Z87.19 - Personal history of other diseases of the digestive system Status: Acute Assessment and Plan 76-year-old female POD2 primary repair of incarcerated hernia -Advance to regular diet -Pain control -Ice -PT eval and treat -DC later today if tolerating diet -Follow up with Dr. Torre next week Attending Statement NOTE FOR SURGICAL ATTENDING, DR. ROSEMARY CRAVEN I agree with above assessment and plan. The exam, history, and the medical decision-making described in the above note were completed with the assistance of the mid-level provider. I reviewed and agree with the findings presented. I attest that I had a [id number] encounter with the patient on the same day, and personally performed and documented my assessment and findings in the medical record. The following services were provided during this hospital visit: Chart data review, vital sign assessments/reviewing monitor data Review of consultations notes if present. Medication orders/review and/or management Ordering and/or reviewing lab tests Ordering and/or interpreting/reviewing x-rays and/or diagnostic studies Care of the patient and discussion of the patient with the care team Documentation time To help prompt me to consider important information that might be impacting today's encounter and assessment, information from prior notes written by myself or my colleagues may have been "brought forward/copy and pasted" into today's note. Moraima Arias Aug 24, 2017 08:04 Rosemary Craven MD Aug 24, 2017 13:51
[2017-08-24 08:09] LABS: AUTOMATED NEUTROPHIL # 4.4 TH/MM3 (1.8-7.7); BASOPHIL % 0.3 % (0.0-2.0); EOSINOPHIL # 0.4 TH/MM3 (0-0.4); EOSINOPHIL % 6.2 % (0.0-4.0); HEMATOCRIT 37.7 % (35.0-46.0); HEMO FLAGS DIFF FINAL; LYMPH % 15.4 % (9.0-44.0); MEAN CELL VOLUME 97.6 FL (80.0-100.0); MEAN CORPUSCULAR HEMOGLOBIN 32.5 PG (27.0-34.0); MEAN CORPUSCULAR HGB CONC 33.3 % (32.0-36.0); MONO % 12.9 % (0.0-8.0); NEUT % 65.2 % (16.0-70.0); PLATELET COUNT 217 TH/MM3 (150-450); RED BLOOD COUNT 3.86 MIL/MM3 (4.00-5.30); RED CELL DISTRIBUTION WIDTH 12.3 % (11.6-17.2); WHITE BLOOD COUNT 6.6 TH/MM3 (4.0-11.0)
[2017-08-24 08:12] LABS: POTASSIUM 3.6 MEQ/L (3.5-5.1)
[2017-08-24 08:17] LABS: BICARBONATE 31.7 MEQ/L (21.0-32.0)
[2017-08-24] MEDS: ACETAMINOPHEN/HYDROcodone 325 MG/5 MG TAB PO PRN ×2 (09:08→13:24)
[2017-08-24] MEDS: PROPRANOLOL HCL 40 MG TAB PO SCH (09:08)
[2017-08-24] MEDS: GABAPENTIN 300 MG CAP PO SCH ×2 (09:08→13:21)
[2017-08-24] MEDS: SODIUM CHLORIDE 0.9% FLUSH 10 ML FLUSH IV FLUSH SCH (13:21)
[2017-08-24 16:00] VITALS: BP 140/83; PULSE 81; RESP 18; TEMP 97.8; O2SAT 96
--- NOTE | 2017-08-25 02:14 | HHI.DS ---
Discharge Summary Admission Date Aug 22, 2017 at 19:45 Discharge Date: Aug 24, 2017 Admitting Diagnosis abdominal hernia. Small bowel obstruction. Dehydration. (1) Incarcerated hernia of abdominal cavity ICD Code: K45.0 - Other specified abdominal hernia with obstruction, without gangrene Diagnosis: Principal Status: Acute (2) Small bowel obstruction ICD Code: K56.609 - Unspecified intestinal obstruction, unspecified as to partial versus complete obstruction Diagnosis: Principal Status: Acute Procedures incarcerated abdominal hernia repair Brief History - From Admission Written by Dudley Molina, acting as scribe for Dr. Daniel on 08/23/17 at 09: 11. 76-year-old female with known history of hypertension, tremors, neuropathy who presented to hospital because of abdominal pain, nausea vomiting. Patient states that her symptoms started on Sunday where she had severe abdominal pain and she did go to the emergency department for evaluation. She took a Tylenol #4 in the waiting room and by time she got into the back the pain had resolved. She had evaluation for her neuropathy and was sent home with pain medication. The patient went home and then Sunday she started developing abdominal pain again with increased nausea. She took Phenergan and her symptoms improved. She did not have any vomiting at that time. Yesterday the pain came back more severe with significant nausea and vomiting. She laid in bed majority of the day and every time she rolled over she would vomit. She describes the pain as a colicky type pain located in the epigastric region. Her last bowel movement was 2 days prior. She had no appetite, increased fatigue, weakness. She denied any fever, chills, hematemesis, she denies any history of constipation. Patient had workup done emergency department and found to have distal small bowel obstruction secondary to incarcerated hernia. Gen. surgery was called and patient went for surgery early this morning and had reduction and repair of incarcerated right inguinal hernia. At the time evaluating patient she states that her nausea has significantly resolved. There is mild tenderness in the abdomen. She is tolerating liquids at this time. She is not passing any gas or had a bowel movement since surgery. CBC/BMP: 08/24/17 0715 08/24/17 0715 Significant Findings Laboratory Tests Test 08/22/17 17:32 08/23/17 04:55 08/24/17 07:15 Neutrophils (%) (Auto) 74.3 % (16.0-70.0) Monocytes (%) (Auto) 15.1 % (0.0-8.0) 13.6 % (0.0-8.0) 12.9 % (0.0-8.0) Lymphocytes # (Auto) 0.8 TH/MM3 (1.0-4.8) Monocytes # (Auto) 1.3 TH/MM3 (0-0.9) 1.1 TH/MM3 (0-0.9) Activated Partial Thromboplast Time 24.1 SEC (24.3-30.1) Blood Urea Nitrogen 33 MG/DL (7-18) 30 MG/DL (7-18) Random Glucose 145 MG/DL (74-106) Albumin 3.3 GM/DL (3.4-5.0) 2.7 GM/DL (3.4-5.0) Sodium Level 135 MEQ/L (136-145) Estimat Glomerular Filtration Rate 74 ML/MIN (>89) 82 ML/MIN (>89) Lipase 49 U/L (73-393) Red Blood Count 3.86 MIL/MM3 (4.00-5.30) 3.86 MIL/MM3 (4.00-5.30) Eosinophils (%) (Auto) 4.5 % (0.0-4.0) 6.2 % (0.0-4.0) Total Protein 5.7 GM/DL (6.4-8.2) Calcium Level 8.4 MG/DL (8.5-10.1) 8.3 MG/DL (8.5-10.1) Imaging Last Impressions Abdomen/Pelvis CT 08/22/17 1324 Signed Impressions: Service Date/Time: Tuesday, August 22, 2017 17:45 - CONCLUSION: 1. There is a distal small bowel obstruction secondary to a low Spigellian hernia on the right. 2. Small volume ascites. 3. Cholelithiasis. 4. Moderate-sized hiatal hernia. 5. 6. 5 mm right lower lobe pulmonary nodule. The findings described above include a newly detected solid pulmonary nodule of 4-6 mm average diameter. Guidelines from the Fleischner Society for the follow-up and management of newly detected indeterminate pulmonary nodules in persons >34 years old depend on nodule size (average of length and width) and underlying risk factors (including smoking and other risk factors). Please consider the following recommendations after clinical assessment of risk factors. For 4-6 mm nodules: 7. In low risk patients, follow-up CT at 12 months; if unchanged, no further follow-up needed. In high risk patients, initial follow-up CT at 6-12 months, then 18-24 months if no change. Bridger Coronado Jr., MD PE at Discharge GENERAL: patient sitting up in bed. Appears comfortable. SKIN: Warm and dry. HEAD: Normocephalic. EYES: No scleral icterus. No injection or drainage. NECK: Supple, trachea midline. No JVD or lymphadenopathy. CARDIOVASCULAR: Regular rate and rhythm without murmurs, gallops, or rubs. RESPIRATORY: Breath sounds equal bilaterally. No accessory muscle use. GASTROINTESTINAL: Abdomen soft, non-tender, nondistended. MUSCULOSKELETAL: No cyanosis, or edema. BACK: Nontender without obvious deformity. No CVA tenderness. Pt update on day of discharge says she is feeling well. Denies any abdominal pain. Status post return of bowel function.feels like going home Hospital Course Patient presented with small bowel obstruction on imaging secondary to incarcerated abdominal hernia. General surgery was consult and patient underwent repair. She subsequently had return of bowel function. Patient was discharged home to follow with general surgery as outpatient. patient will need repeat CT imaging in 6 months for pulmonary nodule incidentally found on CT above. Patient conveys understanding. //Small bowel obstruction secondary to incarcerated hernia - Patient presented with three-day history of abdominal pain, nausea, vomiting - CT scan did indicate small bowel obstruction with incarcerated hernia - General surgery consulted and a she went for cervical intervention last night - Advance diet when passing gas per surgery - Continue to follow recommendations from general surgery //Azotemia - Secondary to nausea, vomiting, dehydration - Continue monitor renal function //Hyperglycemia - Check hemoglobin A1c - Start Accu-Cheks with sliding scale insulin if needed //Hypertension - Continue home medications //DVT prevention - Sequential compression devices Discussed Condition With Discharge planning after patient's bowels are moving and cleared by surgery Pt Condition on Discharge: Good Discharge Disposition: Disch w/ Home Health Serv Discharge Time: > 30 minutes Discharge Instructions DIET: Follow Instructions for: Heart Healthy Diet Activities you can perform: Regular-No Restrictions, See Additionl Instruction Other Activity Instructions: Avoid lifting as per surgical recommendations. Follow up Referrals: SNF/SNF/HH with [facility] - 3-5 Days with Brendan Torre MD New Medications: Adjustable Commode 3-in-1 (Adjustable Commode 3-in-1) 1 Mis Mis EA .ROUTE DIRECTED, #1 Walker with Front Wheels (Walker with Front Wheels) 1 Mis Mis EA .ROUTE DIRECTED, #1 0 Refills Use for ambulation Continued Medications: Acetaminophen-Codeine (Tylenol-Codeine #4) 300-60 mg Tab 1 TAB PO Q6H PRN for PAIN, TAB 0 Refills Amitriptyline (Amitriptyline) 50 Mg Tab 50 MG PO HS, TAB Gabapentin (Gabapentin) 300 Mg Cap 300 MG PO TID, #90 CAP 0 Refills Hydrocodone-Acetaminophen ([place]) 5-325 mg Tab 1 TAB PO Q6H PRN for PAIN, #15 TAB 0 Refills Promethazine (Promethazine) 12.5 Mg Tab 12.5 MG PO QDAY PRN for NAUSEA OR VOMITING, TAB 0 Refills Propranolol (Propranolol) 40 Mg Tab 40 MG PO Q12HR, #60 TAB 0 Refills Sertraline (Zoloft) 100 Mg Tab 100 MG PO DAILY, #30 TAB 0 Refills Discontinued Medications: Meclizine (Meclizine) 25 Mg Tab 25 MG PO DIRECTED PRN for VERTIGO, TAB 0 Refills Delvis Daniel MD Aug 25, 2017 02:14
== END 2017-08-24 16:38 | disposition home health service (06) | DRG 352 ==
LOC: PHED 16:42 → PHEDA 19:45 → PH3A 22:35
PROVIDERS: ADMIT Hospitalist; ATTEND Hospitalist
PROC: 0YQ50ZZ Repair Right Inguinal Region, Open Approach (ICD-10-PCS; principal; 2017-08-22 20:35)
DX: K40.30 Unilateral inguinal hernia, with obstruction, without gangrene, not specified as recurrent (principal); G62.9 Polyneuropathy, unspecified; E86.0 Dehydration; K44.9 Diaphragmatic hernia without obstruction or gangrene; K80.20 Calculus of gallbladder without cholecystitis without obstruction; R73.9 Hyperglycemia, unspecified; I10 Essential (primary) hypertension; R25.1 Tremor, unspecified; R91.1 Solitary pulmonary nodule; R79.89 Other specified abnormal findings of blood chemistry; F03.90 Unspecified dementia, unspecified severity, without behavioral disturbance, psychotic disturbance, mood disturbance, and anxiety; F32.9 Major depressive disorder, single episode, unspecified; Z85.3 Personal history of malignant neoplasm of breast; Z90.13 Acquired absence of bilateral breasts and nipples; Z96.641 Presence of right artificial hip joint
CPT/HCPCS: 74177; 80048; 80053; 83036; 83690; 83735; 84100; 85025; 85610; 85730; 93005; 96361; 96374; 96375; J0690; J1200; J2060; J2270; J2405; J2765; J3010; J7030; J7120; Q9967